=== PATIENT | male | born 1940 | race Caucasian/White ===

== ENCOUNTER 2017-07-16 13:54 | Inpatient (IN) ==
[2017-07-16] MEDS ORDERED: SALINE LOCK IV FLUID XX ONE (14:49)
[2017-07-16] MEDS ORDERED: TYLENOL PO PRN (14:49)
[2017-07-16 15:31] LABS: MANUAL DIFF NEEDED? NO
[2017-07-16 15:35] LABS: BASO% 0.2 % (0.0-0.8); EOS# 0.15 X1000 (0.0-0.7); EOS% 1.5 % (0.0-10.0); HEMATOCRIT 38.9 % (42.0-52.0); HEMOGLOBIN 12.6 g/dL (14.0-18.0); IMM GRAN# 0.03 X1000 (0.0-0.04); IMM GRAN% 0.3 % (0.0-0.5); LYMPH# 1.16 X1000 (1.2-3.4); LYMPH% 11.6 % (20.5-51.1); MCHC 32.4 g/dL (33-37); MCV 95.6 FL (81-99); MONO# 1.07 X1000 (0.11-0.59); MONO% 10.7 % (1.7-9.3); MPV 9.9 FL (7.4-10.4); NEUT% 75.7 % (42.2-75.2); PLT 192 X1000 (130-400); RBC 4.07 XMIL (4.7-6.1)
[2017-07-16 15:47] LABS: INR 3.36; PROTIME 38.1 Seconds (9.2-11.7)
[2017-07-16 16:06] LABS: ALBUMIN 3.6 g/dL (3.5-5.0); CALCIUM 8.9 mg/dL (8.8-10.2); POTASSIUM 4.2 mmol/L (3.5-5.1); TOTAL BILIRUBIN 0.35 mg/dL (0.20-1.00); TOTAL PROTEIN 6.9 g/dL (6.3-8.3)
--- NOTE | 2017-07-16 16:25 | Diag Imaging Result Doc PS360 ---
EXAM: CHEST-2 VIEWS INDICATION: cough and congestion TECHNIQUE: 2 views COMPARISON: 01/26/2017 FINDINGS: There are calcified pleural plaques at the left lower lung zone that are stable. No new consolidation is appreciated. Pleural thickening is causing blunting of the left costophrenic angle, stable. No definite effusion or pneumothorax is appreciated. There are stable CABG changes and a stable left-sided implantable defibrillator. There is stable cardiomegaly. IMPRESSION: Stable calcified pleural plaques at the left lower lung zone. No definite acute pathology, otherwise. Electronically signed by Justino Vegas 07/16/2017 4:23 PM
[2017-07-16] MEDS: LEVAQUIN 500 MG in NS 100 ML IV SCH (17:50)
[2017-07-16] MEDS: SODIUM CHLORIDE 0.9% INJ SCH (17:51)
[2017-07-16] MEDS: PROTONIX IV SCH (17:51)
[2017-07-16] MEDS: HUMALOG SUBQ SCH ×2 (17:52→22:08)
[2017-07-16] MEDS ORDERED: LANOXIN PO SCH (19:15)
--- NOTE | 2017-07-16 20:40 | HISTORY AND PHYSICAL ---
PRIMARY CARE PHYSICIAN: Dr. Castro Verde. CHIEF COMPLAINT: Cough, congestion, and black stool. HISTORY OF PRESENT ILLNESS: 76-year-old white male with a very complicated past medical history as described below presents for evaluation of above-mentioned symptoms. Current history of present illness began all Wednesday. Patient states at that time, he began feeling poorly. Soon thereafter, he developed a "loose" cough with productive of a purulent sputum. Since that time his condition has progressed. He has had significant weakness, mild wheezing, and a profound decrease in his appetite. He has chronic shortness of breath but has noted no significant increase in shortness of breath above his baseline. He denies fever, chills, or sick contacts. In addition to his upper respiratory symptoms, over the course of the last several weeks he has developed loose stools. Yesterday, he experienced a stool described as black. He denies significant abdominal discomfort or changes in his medications recently. Because of his significant symptoms, patient presented to my office for further evaluation and management. He was found to have significant cough and congestion. His Hemoccult was noted to be grossly heme positive. The patient will be admitted to the hospital for full evaluation and management of these conditions. PAST MEDICAL HISTORY: 1. Abnormal electrocardiogram with nonspecific T-wave abnormalities in the lateral leads. 2. Atrial fibrillation status post pacemaker implantation and anticoagulation. 3. Ischemic heart disease status post coronary artery bypass grafting in 1980, 1994, and 1997. 4. Chronic obstructive pulmonary disease followed by Dr. Miller. 5. Systolic congestive heart failure with left ventricular ejection fraction of 14% in 2005. 6. Type 2 diabetes. 7. History of a staph empyema in 1977. 8. Benign prostatic hypertrophy. 9. Hypertension. 10. Hypertriglyceridemia. 11. Hyperlipidemia. 12. Chronic hypoxia requiring nocturnal oxygen. 13. Low HDL. 14. Anticoagulation secondary to atrial fibrillation with Coumadin. 15. Obstructive sleep apnea treated with an oral appliance. 16. Diffuse osteoarthritis. 17. History of paroxysmal ventricular tachycardia with AICD placement. 18. History of Ting syndrome in 1977. 19. History of an abnormal skin examination with multiple actinic keratoses, seborrheic keratoses, and a left basal cell carcinoma. 20. History of a soft tissue mass in the left retroperitoneal super renal region. 21. Intermittent vertigo. CURRENT MEDICATIONS: 1. Aspirin 81 mg at bedtime. 2. Co-Q10 100 mg daily. 3. Coreg 12.5 mg twice daily. 4. Coumadin 3 mg nightly except 1.5 mg on Sundays. 5. Crestor 20 mg at bedtime. 6. Enalapril 10 mg twice daily. 7. Lasix 40 mg daily. 8. Glipizide ER 10 mg twice daily. 9. Imdur 60 mg daily. 10. Potassium chloride 8 mEq daily. 11. Digoxin 250 mcg daily. 12. Metformin 500 mg twice daily. 13. ProAir HFA 1-2 puffs every 4-6 hours as needed. 14. Tamsulosin 0.4 mg daily. 15. TriCor 145 mg at bedtime. ALLERGIES: Patient states he is allergic to AndroGel, nonsteroidal anti-inflammatory agents, Singulair, sulfa drugs, and Voltaren gel. SOCIAL HISTORY: Patient denies tobacco use currently. He previously used 1 pack per day for 43 years. He stopped in 1997. Denies alcohol or illicit drug use. 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 He enjoys golf and the outdoors. He exercises intermittently. FAMILY HISTORY: Patient's father passed at age 54 secondary to complications of an acute myocardial infarction. Patient's mother passed at age 95 secondary to complications of congestive heart failure. She had a history of breast cancer and coronary artery disease. REVIEW OF SYSTEMS: A 12 point review of systems was performed. Pertinent positives and negatives are noted in history present illness. PHYSICAL EXAMINATION: VITAL SIGNS: Temperature 98.9 degrees, heart rate 82, respirations 20, blood pressure is 122/64. GENERAL: Chronically ill appearing, no acute distress. HEENT: Normocephalic, atraumatic. Pupils equal, round, react to light. Extraocular muscles intact. Sclerae anicteric. [place] conjunctivae. Oral and nasopharynx clear without exudate. NECK: Supple. No lymphadenopathy. No thyromegaly. No bruits auscultated. CARDIOVASCULAR: Regular rate and rhythm. No significant murmurs, rubs, or gallops. PULMONARY: Crackles at the left base. ABDOMEN: Soft, nontender, nondistended. Positive bowel sounds. EXTREMITIES: Moves all extremities well. No significant clubbing, cyanosis, or edema. NEUROLOGIC: Cranial nerves 2 through 12 grossly intact. Motor and sensory grossly intact. PSYCHOLOGIC: Examination is appropriate. LABORATORY DATA: White blood cell count 9.99, hemoglobin 12.6, hematocrit 38.9, platelet count 192,000. PT 38.1, INR is 3.36. Sodium 137, potassium 4.2, chloride 95, bicarb 27, BUN 44, creatinine 1.7, glucose 245, calcium 8.9, total bilirubin 0.35, total protein 6.9, albumin 3.6, alkaline phosphatase 63, AST 25, ALT 21. ASSESSMENT AND PLAN: A 76-year-old white male with a very complicated past medical history as noted presents for evaluation of profound fatigue in the setting of cough, congestion, and black stools. The patient's examination and his history are most consistent with an underlying early pneumonia. In addition, patient was grossly Hemoccult positive suggesting an underlying upper GI bleed. Patient will be admitted to the hospital for full evaluation and management of each of these conditions. 1. Admit to General Medicine. 2. Presumed early community-acquired pneumonia-with patient's risk factors, I feel aggressive management is most appropriate. We will start patient on IV levofloxacin. We will encourage incentive spirometry and aspiration precautions. We will hold off on bronchodilators for now, will have a low threshold for adding as necessary if symptoms persist or progress. 3. Melena-patient is grossly Hemoccult positive on examination. Because of his pulmonary condition, I am hesitant to aggressively pursue gastrointestinal evaluation. We will follow the patient with serial hemoglobin and hematocrit evaluations. We will start patient on IV Protonix. We will pursue GI intervention if necessary depending on laboratory data, but at present time, we will 1st pursue treatment of his pulmonary condition. We will follow this closely as well. 4. Systolic congestive heart failure-patient has longstanding history with most recent ejection fraction of 14%. We will continue his optimum medical management. 5. Ischemic heart disease-patient has longstanding disease. Once again, we will continue to optimize his medical and nonmedical management. 6. Chronic obstructive pulmonary disease-the patient has no evidence of significant wheezing on examination. For now, we will follow. 7. Diabetes-we will continue his home medications with the addition of sliding scale insulin. 8. Hypertension-we will continue patient on home medications. 9. Hyperlipidemia-historically, the patient has been well controlled on Crestor. We will continue this. 10. Hypoxemia-we will continue patient on nocturnal oxygen. 11. Obstructive sleep apnea-we will encourage patient to use his oral appliance while hospitalized. 12. Fluid, electrolytes, nutrition. We will monitor electrolytes, saline lock IV, cardiac prudent/diabetic diet. 13. Prophylaxis. Patient will be placed on SCDs. cc: Castro Verde MD
[2017-07-16] MEDS ORDERED: FLOMAX PO SCH (21:00)
[2017-07-16] MEDS: TRICOR PO SCH (21:54)
[2017-07-16] MEDS: VASOTEC PO SCH (21:54)
[2017-07-16] MEDS: COREG PO SCH (21:54)
[2017-07-16] MEDS: IMDUR PO SCH (21:54)
[2017-07-16] MEDS: COENZYME Q10 PO SCH (21:55)
[2017-07-16] MEDS: MICRO-K PO SCH (21:56)
[2017-07-16] MEDS: CRESTOR PO SCH (22:06)
[2017-07-16] MEDS: COUMADIN PO SCH (22:06)
[2017-07-17] MEDS: GLUCOTROL PO SCH ×2 (06:35→18:19)
[2017-07-17] MEDS: SODIUM CHLORIDE 0.9% INJ SCH ×2 (06:35→18:20)
[2017-07-17] MEDS: PROTONIX IV SCH ×2 (06:35→18:19)
[2017-07-17] MEDS: HUMALOG SUBQ SCH ×4 (06:40→22:52)
[2017-07-17 07:18] LABS: MANUAL DIFF NEEDED? NO
[2017-07-17 07:20] LABS: BASO% 0.2 % (0.0-0.8); EOS# 0.23 X1000 (0.0-0.7); EOS% 2.3 % (0.0-10.0); HEMATOCRIT 36.5 % (42.0-52.0); HEMOGLOBIN 11.6 g/dL (14.0-18.0); IMM GRAN# 0.05 X1000 (0.0-0.04); IMM GRAN% 0.5 % (0.0-0.5); LYMPH# 1.24 X1000 (1.2-3.4); LYMPH% 12.6 % (20.5-51.1); MCH 30.6 PG (27-31); MCHC 31.8 g/dL (33-37); MCV 96.3 FL (81-99); MONO# 1.26 X1000 (0.11-0.59); MONO% 12.8 % (1.7-9.3); MPV 9.8 FL (7.4-10.4); NEUT% 71.6 % (42.2-75.2); PLT 196 X1000 (130-400); RBC 3.79 XMIL (4.7-6.1)
[2017-07-17] MEDS: GLUCOPHAGE PO SCH ×2 (11:26→18:19)
[2017-07-17] MEDS: VASOTEC PO SCH ×2 (11:26→22:54)
[2017-07-17] MEDS: FLOMAX PO SCH (11:26)
[2017-07-17] MEDS: COREG PO SCH ×2 (11:26→22:54)
[2017-07-17] MEDS: LASIX PO SCH (11:26)
[2017-07-17] MEDS: LANOXIN PO SCH (11:26)
--- NOTE | 2017-07-17 14:39 | PROGRESS NOTE ---
DATE: 07/17/2017 SUBJECTIVE: The patient was admitted yesterday with cough, congestion, and a recent episode of black stools. He was noted to be grossly Hemoccult positive. Initial evaluation revealed a white blood cell count within the upper limits of normal. Hemoglobin and hematocrit were acceptable. Chest x-ray demonstrated chronic changes. Sputum culture was drawn secondary to a clinical concern for underlying pneumonia. Thus far, preliminary demonstrates gram-negative rods. Overnight, the patient was placed on an IV proton pump inhibitor as well as levofloxacin therapy. This morning, the patient states that he has achieved some improvement in his overall condition. He notes decreasing shortness of breath. His energy level is slightly improved. His appetite is returning. He has had a dark stool, but not a melanic stool, since being hospitalized. He denies fevers, chills, nausea, vomiting, or chest discomfort. OBJECTIVE: Vital Signs: T-max of 98.2. Heart rate 65-84, respirations 18-20, and blood pressure 103-130/49-70. General: Well nourished. Well developed. No acute distress. Cardiovascular: Regular rate and rhythm. No significant murmurs, rubs, or gallops. Pulmonary: Crackles at the left base. Improving air movement. Abdomen: Soft, nontender, and nondistended. Positive bowel sounds. Extremities: He moves all extremities well. No significant clubbing, cyanosis, or edema. SKIN: Dermatologic evaluation reveals no evidence of rash. LABORATORY DATA: White blood cell count is 9.87, hemoglobin 11.6, hematocrit 36.5, and platelet count 196,000. ASSESSMENT AND PLAN: 1. Pneumonia, gram-negative per initial sputum culture - At this point, the patient is clinically improving. We will continue levofloxacin therapy IV. We will add as needed ProAir HFA. We will encourage incentive spirometry and aspiration precautions. We will follow this closely. 2. Melena - The patient was noted to be grossly Hemoccult positive on rectal examination. At this point, I do feel treating his pulmonary condition is most important as long as there is no evidence of a brisk bleed. We will continue treatment as above. We will continue IV proton pump inhibitor. I have discussed the case with Dr. Aldridge and he will consult. We will follow this. 3. Systolic congestive heart failure - The patient's most recent ejection fraction was noted to be 14%. We will continue to optimize his medical management. 4. Ischemic heart disease - We will continue to optimize his medical management. His symptoms are currently controlled. 5. Chronic obstructive pulmonary disease - The patient has no evidence of significant wheezing on examination today. As above, we will resume as needed ProAir HFA. 6. Diabetes - We will continue the patient on his home medications. Sliding scale insulin has been added. 7. Hypertension - The patient's blood pressure is controlled on his home medications. 8. Hyperlipidemia - We will continue the patient on Crestor therapy. 9. Hypoxemia - We will continue the patient on oxygen per protocol. He does use nocturnal oxygen which will be continued. 10.Obstructive sleep apnea - We will continue the patient on his oral appliance. 11.Disposition - At this point, the patient continues to require longterm care in a hospital setting. We will plan discharge home once appropriate. cc: Castro Verde MD
[2017-07-17] MEDS: VENTOLIN HFA INH PRN ×2 (16:08→20:19)
[2017-07-17] MEDS: IMDUR PO SCH (18:19)
[2017-07-17] MEDS: CARAFATE LIQUID PO SCH ×2 (18:19→22:55)
[2017-07-17] MEDS: COENZYME Q10 PO SCH (18:19)
[2017-07-17] MEDS: MICRO-K PO SCH (18:19)
[2017-07-17] MEDS: LEVAQUIN 500 MG in NS 100 ML IV SCH (18:19)
--- NOTE | 2017-07-17 18:40 | PROGRESS NOTE ---
DATE: 07/17/2017 ATTENDING PHYSICIAN: Dr. Verde. [employer]IMARY [employer] MANAGER: Dr. Nava. REASON FOR CONSULTATION: Melena. HISTORY OF PRESENT ILLNESS: [place] is a 76-year-old male who was admitted on 07/16/2017 for symptoms of cough, congestion and black stools. According to the patient, he is having productive cough with purulent sputum along with wheezing and weakness, poor oral intake, lack of appetite, chronic worsening shortness of breath, and also noted change in the color of the stools this week. He is having dark black stools off and on for the last 1 week. The last episode was yesterday. He denies any nausea, vomiting, vomiting blood. He denies any fresh blood in the stools. His last colonoscopy was [address] Nava and he was noted to have multiple polyps. He does not recall having any EGD done in the past. He denies any use of NSAIDs. He does take warfarin now for history of atrial fibrillation. He was seen in the office of Dr. Verde and was noted to have positive Hemoccult. Gastroenterology consult for possible evaluation and management. PAST MEDICAL HISTORY: 1. Atrial fibrillation on Coumadin. 2. Status post pacemaker implantation. 3. Ischemic heart disease status post coronary artery bypass graft in 1980, 1994 and 1997. 4. Cardiomyopathy with ejection fraction of 14%. 5. COPD. 6. Systolic heart failure. EF of 14% in 2005. 7. Type 2 diabetes. 8. Empyema. 9. History of BPH. 10. Hypertension. 11. Hyperlipidemia. 12. Hypertriglyceridemia. 13. Chronic hypoxia requiring oxygen. 14. Low HDL. 15. Anticoagulation secondary to atrial fibrillation. 16. Evidence of obstructive sleep apnea treated with an oral appliance. 17. Diffuse osteoarthritis. 18. Proximal atrial tachycardia with AICD placement. 19. Ting syndrome in 1977. 20. History of abnormal skin with multiple actinic keratoses, seborrheic keratosis and basal cell carcinoma. 21. History of soft tissue mass in the left retroperitoneal suprarenal region. 22. Intermittent vertigo. MEDICATIONS: Medications at home were reviewed and medications in the hospital reviewed. ALLERGIES: To AndroGel, NSAID, Singulair, sulfa and Voltaren gel. SOCIAL HISTORY: Denies history of tobacco use. Used to smoke 1 pack a day for 43 years. Stopped in 1997. Denies history of alcohol or illicit drug abuse. 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 He enjoys golf and outdoors. He exercises intermittently. FAMILY HISTORY: Significant for coronary disease in his father who at age 54. Mother passed at age 95 because of complications of congestive heart failure. REVIEW OF SYSTEMS: Denies any current fevers, rigors, chills, chest pain. He does have shortness of breath. Does have productive cough. Denies any new genitourinary. Denies any new neurological complaints, Does have history of arthritis. Denies history of vomiting blood but does having intermittent black stools in the last 1 week. PHYSICAL EXAMINATION: Vital Signs: Temperature of 98.2 degrees, pulse rate of 85, respiratory rate 16, blood pressure of 120/70, saturating 95% on room air. Body weight of 191 pounds, BMI 29.9 kg/cm2. General Appearance: Moderately built, lying in bed, in no acute. HEENT: Mild pallor. No icterus. Pupils equal and react to light. Neck: Supple. Cardiac : Regular rhythm. Abdomen: Soft, nontender, nondistended. Bowel sounds. No rebound. Extremities: No cyanosis, clubbing. Neurologic: He is alert, awake, oriented times 3. LABS: Hemoglobin and hematocrit 11.6, 36.5, white count of 9.87, platelet count of 196,000, MCV of 96.3. INR of 3.36. PT of 13.1. Sodium 139, potassium 4.2, chloride 95, bicarb 27, INR 13, BUN of 44, creatinine 1.7, glucose of 245, calcium is 8.9. Total bilirubin is 0.35, AST 25, ALT 20, alkaline phosphatase of 63, total protein 6.9, albumin of 3.6. He had a CT scan of the abdomen and pelvis done on 07/12/2017 which showed benign left suprarenal myelolipoma. 2) Severely enlarged prostate gland which is severe and progressive severely since 2011. Further investigation recommended. 3) Small right lower lobe infiltrate suggesting pneumonia. 4) Early pulmonary edema. IMPRESSION AND PLAN: 1. Melena. 2. Atrial fibrillation on Coumadin with INR 3.36. 3. Cardiomyopathy with ejection fraction of 14% in 2005. 4. Severely enlarged prostate and worsened since 2011. Needs further investigation. 5. Mild anemia. 6. Pneumonia. 7. Ischemic heart disease, coronary artery disease. 8. COPD, diabetes, hypertension, hyperlipidemia, hypertriglyceridemia, obstructive sleep apnea. RECOMMENDATIONS: 1. We will give the patient Protonix twice daily. We will start him on Carafate 1 g 6 hours. 2. We will keep a check on hemoglobin and hematocrit and type and cross, and transfuse to keep hematocrit 27%. 3. We will keep the patient on full liquid diet for now. 4. We will keep a close eye on the INR. The patient is currently on Coumadin. We will keep a close eye on his labs and I will decide about possible EGD early next week depending on his overall status. Dr. Nava will return on Wednesday to resume care. 5. In the interim we keep a close eye on his labs and his general status. 6. GI prophylaxis is PPIs. 7. Further recommendations pending hospital course. Discussed with the patient and family and all questions were answered. cc: MD Castro Jones MD Khurshid Yousuf, MD MTDD
[2017-07-17] MEDS: ICAR-C PO SCH (22:53)
[2017-07-17] MEDS: CRESTOR PO SCH (22:53)
[2017-07-17] MEDS: TRICOR PO SCH (22:54)
[2017-07-17] MEDS: COUMADIN PO SCH (22:54)
[2017-07-18] MEDS: SODIUM CHLORIDE 0.9% INJ SCH ×2 (05:43→18:45)
[2017-07-18] MEDS: CARAFATE LIQUID PO SCH ×4 (05:43→21:15)
[2017-07-18] MEDS: PROTONIX IV SCH ×2 (05:43→18:45)
[2017-07-18] MEDS: GLUCOTROL PO SCH ×2 (06:19→15:11)
[2017-07-18] MEDS: HUMALOG SUBQ SCH ×3 (06:20→16:45)
[2017-07-18 07:08] LABS: MANUAL DIFF NEEDED? NO
[2017-07-18 07:31] LABS: BASO% 0.1 % (0.0-0.8); EOS# 0.34 X1000 (0.0-0.7); EOS% 3.8 % (0.0-10.0); HEMATOCRIT 39.8 % (42.0-52.0); HEMOGLOBIN 12.7 g/dL (14.0-18.0); IMM GRAN# 0.07 X1000 (0.0-0.04); IMM GRAN% 0.8 % (0.0-0.5); LYMPH# 1.17 X1000 (1.2-3.4); LYMPH% 13.1 % (20.5-51.1); MCH 30.6 PG (27-31); MCHC 31.9 g/dL (33-37); MCV 95.9 FL (81-99); MONO# 1.12 X1000 (0.11-0.59); MONO% 12.6 % (1.7-9.3); MPV 9.9 FL (7.4-10.4); NEUT% 69.6 % (42.2-75.2); PLT 242 X1000 (130-400); RBC 4.15 XMIL (4.7-6.1)
[2017-07-18 07:51] LABS: POTASSIUM 5.1 mmol/L (3.5-5.1); TOTAL BILIRUBIN 0.4 mg/dL (0.20-1.00); TOTAL PROTEIN 7.3 g/dL (6.3-8.3)
[2017-07-18 08:36] LABS: INR 4.36; PROTIME 50.3 Seconds (9.2-11.7)
[2017-07-18] MEDS: LANOXIN PO SCH (09:44)
[2017-07-18] MEDS: LASIX PO SCH (09:44)
[2017-07-18] MEDS: VASOTEC PO SCH ×2 (09:44→21:14)
[2017-07-18] MEDS: COREG PO SCH ×2 (09:44→21:15)
[2017-07-18] MEDS: FLOMAX PO SCH (09:44)
[2017-07-18] MEDS: ICAR-C PO SCH ×2 (09:45→21:15)
[2017-07-18] MEDS: GLUCOPHAGE PO SCH ×2 (09:45→16:44)
[2017-07-18] MEDS: CENTRUM SILVER PO SCH (09:45)
--- NOTE | 2017-07-18 14:47 | PROGRESS NOTE ---
DATE: 07/18/2017 SUBJECTIVE: Overall, the patient continues to slowly improve. His upper respiratory condition/pneumonia is improving, clinically. He complains of less cough, congestion and shortness of breath. He has not had an additional episode of melena while hospitalized. His hemoglobin and hematocrit have remained stable. He denies fevers, chills, nausea, vomiting, or chest discomfort. OBJECTIVE: T-max is 98.3 degrees, heart rate 67 to 114, respirations 16 to 23, blood pressure 99 to 120/48 to 75.General: Chronically ill-appearing, no acute distress. Cardiovascular: Regular rate and rhythm. No significant murmurs, rubs, or gallops. Pulmonary: Clear to auscultation bilaterally. Abdomen: Soft, nontender, nondistended. Positive bowel sounds. Extremities: Moves all extremities well. No significant clubbing, cyanosis, or edema. Dermatologic: Evaluation reveals no evidence of rash. LABORATORY DATA: White blood cell count 8.90, hemoglobin 12.7, hematocrit 39.8, platelet count 242,000. PT is 50.3, INR 4.36. Sodium 137, potassium 5.1, chloride 96, bicarb 30, BUN 32, creatinine 1.6, glucose 77, calcium 9.0, total bilirubin 0.40, total protein 7.3, albumin 4.0, alkaline phosphatase 47, AST 24, ALT 27. ASSESSMENT AND PLAN: 1. Pneumonia - interestingly, sputum culture yesterday demonstrated a gram-negative, but today's suggest normal jassi. Clinically, the patient had an underlying pneumonia and has achieved improvement with antibiotic intervention. We will continue IV Levaquin and as-needed ProAir HFA. We will encourage incentive spirometry. 2. Melena/gastrointestinal bleed - at this point, the patient's overall condition has improved without recurrence while hospitalized. I appreciate Dr. Aldridge's consultation. For now, we will continue IV proton pump inhibitor. He was transitioned to a liquid diet yesterday for prevention. We will hold his Coumadin, as described below. Should the patient continue to have stability, we will consider discharge home tomorrow with a plan for outpatient esophagogastroduodenoscopy. 3. Supratherapeutic INR - the patient's INR is elevated today. We will discontinue his Coumadin for now. The elevation likely is secondary to levofloxacin interaction. We will remain aware, especially in the setting of a recent gastrointestinal bleed. 4. Systolic congestive heart failure - we will continue to optimize the patient's medical management. 5. Ischemic heart disease - the patient has long-standing disease. We will continue optimum medical management. 6. Chronic obstructive pulmonary disease - the patient has no evidence of wheezing on examination today. We will continue as-needed ProAir HFA. 7. Diabetes - the patient's blood sugars were reasonably controlled on his home regimen. 8. Hypertension - we will continue his home medications. 9. Hyperlipidemia - we will continue Crestor therapy. 10. Hypoxemia - the patient's resting oxygen has improved while hospitalized. We will continue oxygen, per protocol, at night. 11. Obstructive sleep apnea - we will continue his oral appliance. 12. Disposition - at this point, the patient continues to require correction care in a hospital setting. Should patient continue to do well by tomorrow, we will plan discharge home. cc: Castro Verde MD
[2017-07-18] MEDS: LEVAQUIN 500 MG in NS 100 ML IV SCH (16:44)
--- NOTE | 2017-07-18 17:16 | PROGRESS NOTE ---
DATE: 07/18/2017 SUBJECTIVE: The patient resting in bed. His daughter is present at bedside. He is feeling better. He had 1 stool today which was brown in color. He denies any nausea, vomiting, vomiting blood or passing blood in the stools. His INR is a little high today which is 4.2. His Coumadin has been held for today.Objective: Vital signs: Temperature of 97.5 degrees, pulse rate 70, respiratory rate 20, blood pressure 99/59, saturating 98% on room air. Body weight of 199 pounds. BMI 29.9 kg/m2. Moderately nourished male sitting in chair, in no acute distress. HEENT: Mild pallor. No icterus. Neck: Supple. Abdomen: Mildly protuberant, soft, nontender, nondistended. Bowel sounds are normal. No guarding or rebound. Extremities: No cyanosis, clubbing, or edema. Neurologic: Alert, awake, oriented. LABS: Hemoglobin and hematocrit is 12.7 and 39.8, white count of 8.9, platelet count of 242,000, MCV of 95.9. INR of 4.36, PT of 50.3. Sodium 137, potassium 5.1, chloride 96 , bicarb 39, anion gap of 11, BUN of 32, creatinine 1.6, glucose of 2.9. Calcium is 9, total bilirubin is 0.4, AST 24, ALT 27, alkaline phosphatase 47, total protein 7.3, albumin of 4. Sputum culture: Gram- negative rods 2+. Blood culture x 2 is negative after 48 hours. IMPRESSION/PLAN: 1. Melena. Hematocrit is stable. We will continue on Protonix twice daily and Carafate 1 g 6 hours. His Coumadin has been withheld for now because of increased INR. The patient wants to go home tomorrow for personal reasons. I educated him to avoid any use of NSAIDs and keep a close eye on his INR and blood counts with the primary care team. The patient has seen Dr. Nava in the past, so he will call Dr. Nava tomorrow to schedule for outpatient EGD with him. In the interim, he will also be on Protonix twice daily and Carafate 1 g 6 hours. 2. Pneumonia. He is currently on IV Levaquin per the primary care team and he is feeling better. 3. Coagulopathy secondary to Coumadin, which has been held for now. 4. GI prophylaxis with PPI. 5. Bowel regimen. We will start him on Tg-Colace if he has any constipation. 6. The patient has systolic congestive heart failure, ischemic heart disease, chronic obstructive pulmonary disease, diabetes, hypertension, hyperlipidemia, and obstructive sleep apnea which are being managed by Dr. Verde. Above discussed the patient and family. cc: MD Castro Jones MD Mussarrat Yousuf MTDD
[2017-07-18] MEDS: IMDUR PO SCH (18:45)
[2017-07-18] MEDS: MICRO-K PO SCH (18:45)
[2017-07-18] MEDS: COENZYME Q10 PO SCH (18:45)
[2017-07-18] MEDS ORDERED: COUMADIN PO SCH (21:00)
[2017-07-18] MEDS: TRICOR PO SCH (21:14)
[2017-07-18] MEDS: CRESTOR PO SCH (21:18)
[2017-07-19] MEDS: HUMALOG SUBQ SCH ×3 (00:35→14:45)
[2017-07-19] MEDS: CARAFATE LIQUID PO SCH ×2 (05:41→10:18)
[2017-07-19] MEDS: PROTONIX IV SCH (05:41)
[2017-07-19] MEDS: SODIUM CHLORIDE 0.9% INJ SCH (05:41)
[2017-07-19] MEDS: GLUCOTROL PO SCH (06:20)
[2017-07-19 06:55] LABS: MANUAL DIFF NEEDED? NO
[2017-07-19 07:02] LABS: BASO% 0.1 % (0.0-0.8); EOS# 0.29 X1000 (0.0-0.7); EOS% 3.2 % (0.0-10.0); HEMATOCRIT 39.9 % (42.0-52.0); HEMOGLOBIN 12.9 g/dL (14.0-18.0); IMM GRAN# 0.13 X1000 (0.0-0.04); IMM GRAN% 1.4 % (0.0-0.5); LYMPH# 1.18 X1000 (1.2-3.4); LYMPH% 13.2 % (20.5-51.1); MCH 30.6 PG (27-31); MCHC 32.3 g/dL (33-37); MCV 94.8 FL (81-99); MONO# 0.94 X1000 (0.11-0.59); MONO% 10.5 % (1.7-9.3); MPV 9.7 FL (7.4-10.4); NEUT% 71.6 % (42.2-75.2); PLT 255 X1000 (130-400); RBC 4.21 XMIL (4.7-6.1)
[2017-07-19 07:21] LABS: ALBUMIN 4.1 g/dL (3.5-5.0); CALCIUM 9.3 mg/dL (8.8-10.2); POTASSIUM 4.8 mmol/L (3.5-5.1); TOTAL BILIRUBIN 0.41 mg/dL (0.20-1.00); TOTAL PROTEIN 7.3 g/dL (6.3-8.3)
[2017-07-19 07:22] LABS: INR 4.88; PROTIME 56.7 Seconds (9.2-11.7)
[2017-07-19 07:32] VITALS: BP 135/61
[2017-07-19] MEDS: ICAR-C PO SCH (10:18)
[2017-07-19] MEDS: GLUCOPHAGE PO SCH (10:18)
[2017-07-19] MEDS: FLOMAX PO SCH (10:18)
[2017-07-19] MEDS: LANOXIN PO SCH (10:18)
[2017-07-19] MEDS: CENTRUM SILVER PO SCH (10:18)
[2017-07-19] MEDS: VASOTEC PO SCH (10:18)
[2017-07-19] MEDS: COREG PO SCH (10:19)
[2017-07-19] MEDS: LASIX PO SCH (10:19)
--- NOTE | 2017-07-20 08:34 | DISCHARGE SUMMARY ---
ADMISSION DATE: 07/16/2017 DISCHARGE DATE: 07/19/2017 ADMISSION DIAGNOSES: 1. Cough. 2. Congestion. 3. Black stools. DISCHARGE DIAGNOSES: 1. Community-acquired pneumonia, improving. 2. Melena/upper gastrointestinal bleed, stabilized. 3. Supratherapeutic INR, Coumadin held. 4. Systolic congestive heart failure, present on arrival. 5. Ischemic heart disease, present on arrival. 6. Chronic obstructive pulmonary disease, present on arrival. 7. Diabetes, present on arrival. 8. Hypertension, present on arrival. 9. Hyperlipidemia, present on arrival. 10. Nocturnal hypoxia, present on arrival. 11. Obstructive sleep apnea, present on arrival. CONSULTATIONS: Dr. Aldridge with Gastroenterology was consulted for further evaluation and management of grossly Hemoccult-positive stool/upper GI bleed. PROCEDURES: A chest x-ray was performed on 07/16/2017, which revealed stable calcified pleural plaques in the left lower lung lobe. No definitive acute pathology otherwise. HISTORY AND PHYSICAL EXAMINATION: See admit note. PHYSICAL EXAMINATION PRIOR TO DISCHARGE: Vital Signs: Temperature 98 degrees, heart rate 60, respirations 18, blood pressure is 135/61. General: Chronically ill appearing. No acute distress. Cardiovascular: Regular rate and rhythm. No significant murmurs, rubs, or gallops. Pulmonary: Minimal crackles at the left base. Abdomen: Soft, nontender, nondistended. Positive bowel sounds. Extremities: Moves all extremities well. No significant clubbing, cyanosis, or edema. Dermatologic: No evidence of rash. LABORATORY DATA PRIOR TO DISCHARGE: White blood cell count 8.97, hemoglobin 12.9, hematocrit 39.9, platelet count is 255,000. PT is 56.7, INR is 4.88. Sodium 138, potassium 4.8, chloride 96, bicarb 32, BUN 26, creatinine 1.6, glucose 77, calcium 9.3. Total bilirubin 0.41, total protein 7.3, albumin 4.1, alkaline phosphatase 46, AST 22, ALT 28. HOSPITAL COURSE: The patient was admitted as per history and physical examination. Hospital course per condition is as follows: 1. Community-acquired pneumonia. Upon admission, the patient was noted to have significant cough and congestion. While chest x-ray did not demonstrate a definitive abnormality, clinically, the patient's symptoms were most consistent. With IV antibiotic therapy, the patient achieved significant improvement. The patient will be discharged home with levofloxacin for an additional 7 days, and as needed ProAir HFA. We will follow the patient's clinical course closely. 2. Melena/upper gastrointestinal bleed. The patient was noted to have grossly Hemoccult-positive stools upon admission. Since admission, the patient has not passed an additional melanic stool. His hemoglobin and hematocrit have remained stable. The patient's INR remains supratherapeutic, but despite this, no evidence of active bleeding is identified. The patient was started on IV Protonix and Carafate therapy. Because the patient's condition has stabilized, and the fact that the patient is a high-risk for procedural intervention with his underlying medical conditions, in addition to his acute pneumonia, we will plan discharge home with very close followup. We will discharge the patient on Protonix twice daily and Carafate. We will have the patient follow up with Dr. Nava as an outpatient. 3. Supratherapeutic INR. The patient's Coumadin has been held. I have asked the patient to have his INR checked on Wednesday or of this week. We will determine if resuming therapy is appropriate. 4. Systolic congestive heart failure. The patient has longstanding disease. He has maintained euvolemia while hospitalized. 5. Ischemic heart disease. The patient has longstanding disease. He is treated with optimum medical management. He currently is asymptomatic. 6. Chronic obstructive pulmonary disease. The patient was treated with as needed ProAir HFA while hospitalized, with adequate response. 7. Diabetes. The patient's blood sugars increased slightly while hospitalized, associated with his underlying infection. With his home regimen and with improvement in his condition, I suspect this will return to his baseline blood sugars. 8. Hypertension. The patient's blood pressure has been slightly low while hospitalized. As an outpatient, I have asked the patient to hold his enalapril for systolic blood pressure less than 110. We will follow this. 9. Hyperlipidemia. The patient was maintained on Crestor therapy while hospitalized. 10. Nocturnal hypoxia. The patient was treated with oxygen supplementation while hospitalized, with adequate response. 11. Obstructive sleep apnea. The patient was continued on his oral appliance while hospitalized. DISCHARGE CONDITION: Stable. DISPOSITION: Discharged to home. MEDICATIONS: 1. Albuterol 1 to 2 puffs every 4 to 6 hours as needed. 2. Carvedilol 12.5 mg twice daily. 3. Digoxin 250 mcg daily. 4. Enalapril 10 mg twice daily, hold for systolic blood pressure less than 110. 5. Fenofibrate 145 mg at bedtime. 6. Lasix 40 mg daily. 7. Glipizide 10 mg twice daily. 8. Icar-C 1 tablet twice daily. 9. Imdur 60 mg every 24 hours. 10. Metformin 500 twice daily. 11. Multivitamin daily. 12. Potassium chloride 8 mEq daily. 13. Rosuvastatin 20 mg at bedtime. 14. Carafate liquid 1 gram every 6 hours. 15. Tamsulosin 0.4 mg at bedtime. 16. CoQ10, 100 mg every 24 hours. 17. Levofloxacin 500 mg daily for 7 days. 18. Pantoprazole 40 mg twice daily. 19. Coumadin is to be held with an INR scheduled on Wednesday or . FOLLOWUP: The patient is to follow up with me in approximately 1 to 2 weeks. The patient is to follow up with Dr. Nava in 2 weeks. cc: Castro Verde MD
== END 2017-07-19 15:11 | disposition home or self-care (01) ==
LOC: DIRADM 13:54 → 3N 14:27
PROVIDERS: ADMIT Internal Medicine; ATTEND Internal Medicine

== ENCOUNTER 2019-04-18 13:29 | Inpatient (IN) ==
[2019-04-18] MEDS ORDERED: NS NEB INH SCH (14:42)
[2019-04-18] MEDS ORDERED: TYLENOL PO PRN ×2 (14:42→20:29)
[2019-04-18] MEDS: LEVAQUIN 500 MG in NS 100 ML IV SCH (15:32)
[2019-04-18] MEDS: ATROVENT NEB INH SCH ×3 (15:39→23:50)
[2019-04-18] MEDS: XOPENEX NEB INH SCH ×3 (15:39→23:50)
[2019-04-18 16:14] LABS: BASO# 0.02 X1000 (0.0-0.2); BASO% 0.2 % (0.0-0.8); EOS# 0.14 X1000 (0.0-0.7); EOS% 1.3 % (0.0-10.0); HEMATOCRIT 43.4 % (42.0-52.0); HEMOGLOBIN 14.1 g/dL (14.0-18.0); IMM GRAN# 0.05 X1000 (0.0-0.04); IMM GRAN% 0.4 % (0.0-0.5); LYMPH# 1.14 X1000 (1.2-3.4); LYMPH% 10.3 % (20.5-51.1); MCH 30.8 PG (27-31); MCHC 32.5 g/dL (33-37); MCV 94.8 FL (81-99); MONO# 1.86 X1000 (0.11-0.59); MONO% 16.7 % (1.7-9.3); MPV 9.7 FL (7.4-10.4); NEUT# 7.91 X1000 (1.4-6.5); NEUT% 71.1 % (42.2-75.2); PLT 218 X1000 (130-400); RBC 4.58 XMIL (4.7-6.1); RDW 14.3 % (11.5-14.5); WBC 11.12 X1000 (4.8-10.8)
[2019-04-18 16:42] LABS: ALB/GLOB RATIO 1.1; CREATININE 1.5 mg/dL (0.7-1.2); TOTAL BILIRUBIN 0.48 mg/dL (0.20-1.00); TOTAL PROTEIN 7.7 g/dL (6.3-8.3)
[2019-04-18 16:45] LABS: INR 4.01
[2019-04-18 16:48] LABS: PROTIME 41.8 Seconds (11.0-16.0)
--- NOTE | 2019-04-18 18:01 | Diag Imaging Result Doc PS360 ---
EXAM: CHEST-2 VIEWS HISTORY: Pneumonia TECHNIQUE: Chest two views COMPARISON: 02/01/2019 FINDINGS: Poor inspiratory effort. Cardiomegaly remains. The sternal wires and a left pacemaker. Increased interstitial markings bilaterally. These are most pronounced in the lung bases. A large portion of the markings in the left base were present on the prior exam and consistent with fibrosis. Severe shoulder arthritis. IMPRESSION: Pneumonia and fibrosis. Electronically signed by Solo Reynoso 04/18/2019 5:58 PM
[2019-04-18] MEDS: FLOMAX PO SCH (20:26)
[2019-04-18] MEDS ORDERED: ENTRESTO 24 MG-26 MG TABLET PO SCH (21:00)
[2019-04-18] MEDS: COENZYME Q10 PO SCH (21:35)
[2019-04-18] MEDS: CRESTOR PO SCH (21:35)
[2019-04-18] MEDS: TRICOR PO SCH (21:35)
[2019-04-18] MEDS: HUMALOG SUBQ SCH (21:36)
--- NOTE | 2019-04-18 23:11 | HISTORY AND PHYSICAL ---
PRIMARY CARE PHYSICIAN: Dr. Castro Verde. CHIEF COMPLAINT: Shortness of breath. HISTORY OF PRESENT ILLNESS: 78-year-old white male with a complicated past medical history presents for evaluation of above-mentioned symptoms. Pertinent history of present illness began approximately 2 weeks ago. At that time, he developed a cough after a significant sick exposure in his . Initially, symptoms were nonlimiting. With time, unfortunately symptoms have progressed. Last week he developed a cough became productive of a purulent sputum. On Wednesday he developed subjective fevers and fatigue. Over the weekend his energy level continued to decline. Over the course of the last couple of days he has developed considerable shortness of breath. His p.o. intake has been minimal. Interestingly, cough has decreased. He has a longstanding history of systolic congestive heart failure. He has noted increasing abdominal girth which he attributes to volume retention. There has been no evidence of fevers, chills, nausea, vomiting, chest discomfort, palpitations, change in bowel movements, and change in urination. PAST MEDICAL HISTORY: 1. Abnormal electrocardiogram with chronic nonspecific T-wave abnormalities in the lateral leads. 2. Atrial fibrillation. 3. Ischemic heart disease status post coronary artery bypass grafting in 1980, 1994, and 1997. 4. Chronic kidney disease. 5. Chronic obstructive pulmonary disease. 6. Congestive heart failure with most recent left ventricular ejection fraction of 14%. 7. Diabetes. 8. History of a staph empyema after acute myocardial infarction in 1977. 9. Benign prostatic hypertrophy. 10. Hypertension. 11. Hypertriglyceridemia. 12. History of hyperkalemia resolved after adjusting spironolactone dose. 13. Hyperlipidemia. 14. Hypoxemia treated with nocturnal oxygen. 15. Low HDL. 16. Long-term anticoagulation. 17. Erectile dysfunction. 18. Obstructive sleep apnea. 19. Osteoarthritis. 20. Paroxysmal ventricular tachycardia. 21. 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 22. Multiple PVCs. 23. Hypogonadism. 24. History of a prostate nodule in 2011 status post negative biopsy. 25. History of an abnormal skin examination with multiple actinic keratoses, and a history of a basal cell number. 26. Vertigo. CURRENT MEDICATIONS: 1. Chromium 300 mcg at bedtime. 2. Coenzyme Q10 100 mg twice daily. 3. Crestor 20 mg at bedtime. 4. Digoxin 250 mcg on Wednesday, Wednesday, and Wednesday. 5. Entresto 24/ daily. 6. Furosemide 80 mg daily. 7. Glipizide 10 mg twice daily. 8. L-carnitine 500 mg twice daily. 9. Metoprolol tartrate 25 mg twice daily. 10. Spironolactone 25 mg on Wednesday, Wednesday, and Wednesday. 11. Tamsulosin 0.4 mg daily. 12. Tramadol 50 mg 3 times daily. 13. Tricor 145 mg at bedtime. 14. Coumadin 3 mg at bedtime except 1.5 mg on Sundays and Wednesdays. ALLERGIES: Patient states he is allergic to the AndroGel which causes fluid retention, nonsteroidal anti-inflammatory agents which cause fluid retention, Singulair which causes reflux, sulfa which causes an unknown reaction, and Voltaren Gel which causes volume retention. SOCIAL HISTORY: Patient is a previous smoker having smoked 1 pack per day for 43 years. He stopped in 1997. He denies alcohol or illicit drug use. 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 He enjoys golf and the outdoors. He exercises intermittently. FAMILY HISTORY: Patient's father passed at age 54 secondary to complications of an acute myocardial infarction. Patient's mother passed at age 95 with complications of congestive heart failure. She had a history of breast cancer and coronary artery disease/acute myocardial infarction. REVIEW OF SYSTEMS: A 12 point review of systems was performed. Pertinent positives and negatives are noted in history present illness. PHYSICAL EXAMINATION: VITAL SIGNS: Temperature 99.5 degrees, heart rate 91, respirations 30, blood pressure is 110/57. GENERAL: Chronically ill appearing, no acute distress. HEENT: Normocephalic, atraumatic. Pupils equal, round, react to light. Extraocular muscles intact. Sclerae anicteric. [place] conjunctivae. Oral and nasopharynx clear without exudate. NECK: Supple. No lymphadenopathy. No thyromegaly. No bruits auscultated. CARDIOVASCULAR: Irregularly irregular, 3/6 systolic murmur noted at the apex. No rubs or gallops. PULMONARY: Reasonable air movement. ABDOMEN: Soft, nontender, nondistended, positive bowel sounds. EXTREMITIES: Moves all extremities well, no significant clubbing, cyanosis, 1+ lower extremity edema bilaterally. NEUROLOGIC: Cranial nerves 2-12 grossly intact. Motor and sensory grossly intact. PSYCHOLOGIC: Appropriate. LABORATORY DATA: White blood cell count 11.12, hemoglobin 14.1, hematocrit 43.4, platelet count 218,000. PT 41.8, INR is 4.01, sodium 137, potassium 4.0, chloride 97, bicarb 28, BUN 27, creatinine 1.5, glucose 112, calcium 9.0, total bilirubin 0.48, total protein 7.7, albumin 4.0, alkaline phosphatase 69, AST 22, ALT 17. ProBNP 4250. Chest x-ray reveals pneumonia and fibrosis. ASSESSMENT AND PLAN: A 78-year-old white male with a very complicated past medical history as noted presents for evaluation of shortness of breath. Full evaluation has revealed underlying pneumonia. Laboratory data is significant for an elevated white blood cell count and supratherapeutic INR. Patient will be admitted to the hospital for full evaluation and management of this condition. 1. Admit to General Medicine. 2. Pneumonia-this is a presumed community-acquired pathogen. The patient will be placed on levofloxacin therapy. We will start bronchodilators. We will encourage incentive spirometry and aspiration precautions. We will check blood and sputum cultures. 3. Systolic congestive heart failure-patient has longstanding disease. At this point, he appears to be mildly volume up. We will start antibiotics today. We will consider adding IV Lasix in the morning. We will follow this. 4. Leukocytosis. This likely is a consequence of the patient's pneumonia. We will treat as above. 5. Chronic ischemic heart disease-we will continue patient on optimum medical management. He is asymptomatic. 6. Chronic kidney disease-patient's creatinine is reasonably stable at 1.5. We will remain aware. 7. Chronic obstructive pulmonary disease-patient has advanced disease. We will treat patient with bronchodilators as noted. 8. Type 2 diabetes-we will hold patient's glipizide. We will cover patient with sliding scale insulin. 9. Hypertension-we will continue patient on his home medications. 10. Hyperlipidemia/hypertriglyceridemia/low HDL-we will continue patient on optimized medical management. 11. Anticoagulation-patient is supratherapeutic. We will hold Coumadin for now. 12. Fluid, electrolytes, nutrition. Will monitor electrolytes. Saline lock IV. Cardiac prudent diet. 13. Prophylaxis. Patient is supratherapeutic on his Coumadin. We will hold this for now. cc: Castro Verde MD MTDKaveh
[2019-04-19] MEDS: LOPRESSOR PO SCH ×3 (00:28→21:16)
[2019-04-19] MEDS: XOPENEX NEB INH SCH ×6 (03:47→23:25)
[2019-04-19] MEDS: ATROVENT NEB INH SCH ×6 (03:47→23:25)
[2019-04-19] MEDS: HUMALOG SUBQ SCH ×4 (06:57→21:17)
[2019-04-19] MEDS ORDERED: LANOXIN PO SCH (09:00)
[2019-04-19] MEDS ORDERED: ALDACTONE PO SCH (09:00)
[2019-04-19] MEDS: ENTRESTO 24 MG-26 MG TABLET PO SCH (09:14)
[2019-04-19] MEDS: LASIX PO SCH (09:15)
[2019-04-19] MEDS: ROCEPHIN 1 GM in NS 50 ML IV SCH (11:04)
[2019-04-19] MEDS: LEVAQUIN 500 MG in NS 100 ML IV SCH (15:55)
--- NOTE | 2019-04-19 20:28 | PROGRESS NOTE ---
DATE: 04/19/2019 SUBJECTIVE: Upon my arrival this morning, patient was sitting upright and eating breakfast. He noted significant improvement in his pulmonary condition. He did continue to have cough, although this had decreased. His shortness of breath has decreased. This evening, patient notes further improvement. He denies current fevers, chills, nausea, vomiting, or chest discomfort. OBJECTIVE: Vital signs: T-max is 99.5, heart rate 92 to 108, respirations 14 to 30, blood pressure 102 to 118 over 53 to 77. General: Chronically ill-appearing, no acute distress. Cardiovascular: Irregularly irregular. No significant murmurs, rubs, or gallops. Pulmonary: Crackles at bilateral bases. Adequate air movement. Abdomen: Soft, nontender, nondistended. Positive bowel sounds. Extremities: Moves all extremities well. No significant clubbing, cyanosis, or edema. Dermatologic: Evaluation reveals no evidence of rash. LABORATORY DATA: None. ASSESSMENT AND PLAN: 1. Pneumonia--This is a presumed community-acquired pathogen. As patient is achieving significant improvement, we will continue his current regimen of levofloxacin and Rocephin therapy. We will continue bronchodilators and encourage incentive spirometry and aspiration precautions. We will follow patient's blood cultures and sputum cultures. 2. Systolic congestive heart failure--This evening, patient states he has begun diuresing. Interestingly, we have only prescribed his home regimen. The patient is approaching euvolemia. We will follow this. 3. Leukocytosis--This likely is a consequence of his underlying pneumonia. We will recheck a CBC in the morning. 4. Chronic ischemic heart disease--Patient is currently asymptomatic. We will continue his optimized medical management. 5. Chronic kidney disease--Patient's creatinine upon admission was 1.5. We will repeat this in the a.m. 6. Chronic obstructive pulmonary disease--The patient has achieved stabilization of his shortness of breath with bronchodilators and treatment of the underlying pneumonia. 7. Type 2 diabetes--Patient's glipizide has been held. We will continue sliding scale insulin. 8. Hypertension--Blood pressure is reasonably controlled on his home regimen. 9. Hyperlipidemia/hypertriglyceridemia/low HDL--We will continue patient's optimized outpatient medical management. 10. Anticoagulation--The patient's INR was supratherapeutic yesterday. We will repeat this in the a.m. and determine if resuming Coumadin is appropriate. DISPOSITION: At this point, patient continues to require alf care in a hospital setting. We will plan discharge home once appropriate. cc: Castro Verde MD
[2019-04-19] MEDS ORDERED: MAG-OX PO SCH (21:00)
[2019-04-19] MEDS: COENZYME Q10 PO SCH (21:16)
[2019-04-19] MEDS: CRESTOR PO SCH (21:16)
[2019-04-19] MEDS: TRICOR PO SCH (21:17)
[2019-04-19] MEDS: FLOMAX PO SCH (21:17)
[2019-04-20] MEDS: XOPENEX NEB INH SCH ×5 (03:30→19:19)
[2019-04-20] MEDS: ATROVENT NEB INH SCH ×5 (03:30→19:19)
[2019-04-20] MEDS: HUMALOG SUBQ SCH ×3 (06:50→16:42)
[2019-04-20 06:51] LABS: BASO# 0.03 X1000 (0.0-0.2); BASO% 0.3 % (0.0-0.8); EOS# 0.24 X1000 (0.0-0.7); EOS% 2.5 % (0.0-10.0); HEMATOCRIT 43.4 % (42.0-52.0); HEMOGLOBIN 13.9 g/dL (14.0-18.0); IMM GRAN# 0.06 X1000 (0.0-0.04); IMM GRAN% 0.6 % (0.0-0.5); LYMPH# 0.93 X1000 (1.2-3.4); LYMPH% 9.7 % (20.5-51.1); MCH 30.2 PG (27-31); MCV 94.3 FL (81-99); MONO# 1.25 X1000 (0.11-0.59); MPV 9.6 FL (7.4-10.4); NEUT# 7.08 X1000 (1.4-6.5); NEUT% 73.9 % (42.2-75.2); PLT 233 X1000 (130-400); RDW 14.1 % (11.5-14.5); WBC 9.59 X1000 (4.8-10.8)
[2019-04-20 06:59] LABS: INR 2.37; PROTIME 27.7 Seconds (11.0-16.0)
[2019-04-20 07:12] LABS: ALB/GLOB RATIO 1.3; ALBUMIN 3.9 g/dL (3.5-5.0); CALCIUM 8.6 mg/dL (8.8-10.2); CREATININE 1.6 mg/dL (0.7-1.2); POTASSIUM 3.8 mmol/L (3.5-5.1); TOTAL BILIRUBIN 0.51 mg/dL (0.20-1.00); TOTAL PROTEIN 6.8 g/dL (6.3-8.3)
--- NOTE | 2019-04-20 10:05 | Diag Imaging Result Doc PS360 ---
CHEST-2 VIEWS - 04/20/2019 INDICATION: Pneumonia COMPARISON: 04/18/2019 FINDINGS: Stable surgical changes to the heart and left-sided pacemaker. Stable cardiomegaly. Stable calcified pleural plaque in the lateral left lung base. Stable ill-defined increased markings in the lung bases that are nonspecific. No pneumothorax or large pleural effusion. IMPRESSION: Stable ill-defined bibasilar infiltrates consistent with pneumonia and/or pulmonary edema. Electronically signed by Roe Leiva 04/20/2019 10:02 AM
[2019-04-20] MEDS: ROCEPHIN 1 GM in NS 50 ML IV SCH (10:15)
[2019-04-20] MEDS: LASIX PO SCH (10:16)
[2019-04-20] MEDS: ENTRESTO 24 MG-26 MG TABLET PO SCH (10:16)
[2019-04-20] MEDS: LOPRESSOR PO SCH (10:16)
[2019-04-20] MEDS: LEVAQUIN 500 MG in NS 100 ML IV SCH (14:50)
[2019-04-20 15:31] VITALS: BP 109/66
--- NOTE | 2019-04-21 20:27 | DISCHARGE SUMMARY ---
ADMISSION DATE: 04/18/2019 DISCHARGE DATE: 04/20/2019 ADMISSION DIAGNOSIS: Shortness of breath. DISCHARGE DIAGNOSES: 1. Pneumonia, community acquired. 2. Systolic congestive heart failure, present on arrival. 3. Leukocytosis, improved. 4. Chronic ischemic heart disease, present on arrival. 5. Chronic kidney disease, present on arrival. 6. Chronic obstructive pulmonary disease, present on arrival. 7. Type 2 diabetes, present on arrival. 8. Hypertension, present on arrival. 9. Hyperlipidemia/hypertriglyceridemia/low HDL, present on arrival. 10. Anticoagulation, present on arrival. CONSULTATIONS: None. PROCEDURES: 1. Chest x-ray was performed on 04/18/2019 which revealed pneumonia and fibrosis. 2. Chest x-ray was performed on 04/20/2019 which revealed stable ill-defined bibasilar infiltrates consistent with pneumonia and/or pulmonary edema. HISTORY AND PHYSICAL EXAMINATION: See admit note. PHYSICAL EXAMINATION PRIOR TO DISCHARGE: Temperature 97.8 degrees, heart rate 93, respirations 16, blood pressure is 109/66. General: Well nourished, well developed, no acute distress. Cardiovascular: Regular rate and rhythm. No significant murmurs, rubs, or gallops. Pulmonary: Minimal crackles at bilateral bases. Adequate air movement. Abdomen: Soft, nontender, nondistended. Positive bowel sounds. Extremities: Moves all extremities well. No significant clubbing, cyanosis, or edema. Dermatologic: Evaluation reveals no evidence of rash. LABORATORY DATA: Prior to discharge. White blood cell count 9.59, hemoglobin 13.9, hematocrit 43.4, platelet count 233,000. PT 27.7, INR is 2.37. Sodium 134, potassium 3.8, chloride 93, bicarb 33, BUN 24, creatinine 1.6, glucose 152, calcium 8.6, total bilirubin 0.51, total protein 6.8, albumin 3.9, alkaline phosphatase 48, AST 24, ALT 21. HOSPITAL COURSE: Patient was admitted as per history and physical examination. Hospital course per condition is as follows. 1. Pneumonia-upon admission, patient was noted to have profound fatigue and shortness of breath. Chest x-ray was consistent with an underlying pneumonia. White blood cell count returned elevated. Patient was started on levofloxacin and Rocephin therapy. Bronchodilators were initiated. Quickly, with aggressive intervention, symptoms improved. At time of discharge, patient had adequate saturations on room air. Patient will be discharged with 7 additional days of levofloxacin therapy. We will continue bronchodilators as described below. 2. Systolic congestive heart failure-patient was continued on his home diuretic regimen while hospitalized. The patient tolerated this well. At time of discharge, he was approaching euvolemia. 3. Leukocytosis-this likely is a consequence of his underlying pneumonia. With aggressive intervention, leukocytosis resolved. We will follow this as an outpatient as well. 4. Chronic ischemic heart disease-patient has longstanding disease. He was continued on optimal medical management. He denied chest discomfort while hospitalized. 5. Chronic kidney disease-the patient's creatinine remained stable while hospitalized. 6. Chronic obstructive pulmonary disease-the patient is currently treated with bronchodilators as an outpatient. We will add nebulized albuterol Atrovent. For now, I would recommend 3 times daily decreased as needed after his pneumonia resolves. 7. Type 2 diabetes-patient's glipizide was held. He was treated with sliding scale insulin while hospitalized. We will slowly resume glipizide as an outpatient. 8. Hypertension-patient's blood pressure was reasonably controlled on his home regimen. 9. Hyperlipidemia/hypertriglyceridemia/low HDL-the patient was continued on his optimum home regimen. 10. Anticoagulation-patient's INR supratherapeutic upon admission. On the day of discharge, patient's INR was therapeutic. We will resume Coumadin therapy tonight. DISCHARGE CONDITION: Good. DISPOSITION: Discharge to home. MEDICATIONS: 1. Entresto 24/ daily. 2. Digoxin 250 mcg on Wednesday, Wednesday, and Wednesday. 3. Metoprolol 25 mg twice daily. 4. Magnesium oxide 400 mg at bedtime. 5. Fenofibrate 145 mg at bedtime. 6. Spironolactone 25 mg on Wednesday, Wednesday, and Wednesday. 7. Lasix 80 mg daily. 8. Coumadin as directed. 9. Tamsulosin 0.4 mg at bedtime. 10. Coenzyme-Q10 100 mg daily. 11. ProAir HFA 1-2 puffs every 4-6 hours as needed. 12. Rosuvastatin 20 mg at bedtime. 13. Centrum Silver daily. 14. Tylenol 650 mg every 4 hours as needed. 15. Levofloxacin 500 mg daily. FOLLOWUP: The patient is to follow up with me in approximately 1 to 2 weeks. cc: Castro Verde MD
== END 2019-04-20 20:15 | disposition home health service (06) | DRG 194 ==
LOC: DIRADM 13:29 → 4N 14:31
PROVIDERS: ADMIT Internal Medicine; ATTEND Internal Medicine
CPT/HCPCS: 71020; 71046; 80053; 82948; 83880; 85025; 85610; 87040; 87070; 87205; 94640; 94761; 94799; A9270; J0696; J1815; J1956; XXXXX